=== PATIENT | female | born 1995 | race Caucasian/White ===

== ENCOUNTER 2019-10-19 09:40 | Emergency (ER) | payer BC ==
[2019-10-19] MEDS ORDERED: Dexamethasone TAB* 4 MG PO ONE (10:16)
[2019-10-19] MEDS ORDERED: Lidocaine 2% VISCOUS* 15 ML UDC PO ONE (10:16)
--- NOTE | 2019-10-19 10:17 | ED ---
Throat Pain/Nasal Congestion - HPI Summary HPI Summary: This patient is a 23 year old F presenting to ED with a chief complaint of swollen throat pain since 10/11/19. On 10/11/19 patient noticed that her throat was swelling. On 10/12/19 she had a fever that went away a day later. However, her throat pain kept and swelling getting worse and so she went to urgent care on 10/15/19. They diagnosed her with an infection, but she reports she has been feeling worse. She has been unable to sleep due to the pain and the swelling has not gone down. She reports she has been having moderate amounts of dry coughing, difficulty breathing, vomiting twice and intermittent fevers. She has taken Ibuprofen and Sudafed. The patient rates the pain 6/10 in severity. Symptoms aggravated by nothing. Symptoms alleviated by nothing. Medications reviewed. Allergies noted. - History of Current Complaint Chief Complaint: EDThroatPain Time Seen by Provider: 10/19/19 10:09 Hx Obtained From: Patient Onset/Duration: Gradual Onset, Lasting Days - Since 10/11/19, Still Present, Worse Since Severity: Moderate Cough: Nonproductive - Allergies/Home Medications Allergies/Adverse Reactions: Allergies Allergy/AdvReac Type Severity Reaction Status Date / Time No Known Allergies Allergy Verified 10/19/19 09:45 Home Medications: Home Medications Amoxicillin PO (*) [Amoxicillin 875 MG (*)] 875 mg PO BID 10/19/19 [History Confirmed 10/19/19] Ibuprofen TAB* [Motrin TAB* 400 MG] 400 mg PO Q6H PRN 10/19/19 [History Confirmed 10/19/19] PMH/Surg Hx/FS Hx/Imm Hx Endocrine/Hematology History: Denies: Hx Diabetes Cardiovascular History: Denies: Hx Hypercholesterolemia, Hx Hypertension Sensory History: Denies: Hx Legally Blind, Hx Deafness Opthamlomology History: Denies: Hx Legally Blind EENT History: Denies: Hx Deafness - Surgical History Surgery Procedure, Year, and Place: Denies Infectious Disease History: No Infectious Disease History: Denies: Traveled Outside the [place] in Last 30 Days - Family History Known Family History: Positive: Hypertension, Diabetes - Social History Alcohol Use: Occasionally Hx Substance Use: No Substance Use Type: Reports: None Hx Tobacco Use: No Smoking Status (MU): Never Smoked Tobacco Review of Systems Positive: Fever ENT: Other - Swollen throat and throat pain Respiratory: Other - Difficulty breathing Positive: Cough - Dry cough Positive: Vomiting - x2 All Other Systems Reviewed And Are Negative: Yes Physical Exam - Summary Physical Exam Summary: Constitutional: Well-developed, Well-nourished, Alert. (-) Distressed Skin: Warm, Dry HENT: bilateral tonsillar erythema, swelling, exudate, uvula midline, no pain with tracheal manipulation, full range of motion of the neck Eyes: Conjunctiva normal Neck: Musculoskeletal ROM normal neck. (-) JVD, (-) Stridor, (-) Tracheal deviation Cardio: Rhythm regular, rate normal, Heart sounds normal; Intact distal pulses; Radial pulses are 2+ and symmetric. (-) Murmur Pulmonary/Chest wall: Effort normal. (-) Respiratory distress, (-) Wheezes, (-) Rales Abd: Soft, (-) tenderness, (-) Distension, (-) Guarding, (-) Rebound Musculoskeletal: (-) Edema Lymph: (-) Cervical adenopathy Neuro: Alert, Oriented x3 Psych: Mood and affect Normal Triage Information Reviewed: Yes Vital Signs On Initial Exam: Initial Vitals Temp Pulse Resp BP Pulse Ox 99.3 F 103 20 145/97 97 10/19/19 09:42 10/19/19 09:42 10/19/19 09:42 10/19/19 09:42 10/19/19 09:42 Vital Signs Reviewed: Yes Procedures - Sedation Patient Received Moderate/Deep Sedation with Procedure: No Diagnostics - Vital Signs Vital Signs Temp Pulse Resp BP Pulse Ox 10/19/19 09:42 99.3 F 103 20 145/97 97 - Laboratory Lab Statement: Any lab studies that have been ordered have been reviewed, and results considered in the medical decision making process. Re-Evaluation - Re-Evaluation First Eval Re-Evaluation Time: 11:11 Comment: Discussed results with patient. Patient will be discharged home with dx of pharyngitis. Patient understands and agrees with this plan. EENT Course/Dx - Course Course Of Treatment: Patient is here with pharyngitis. Patient has no evidence of LVN or retropharyngeal abscess on exam. Patient's overall well appearing. Patient had negative rapid strep. Patient is given a dose of Decadron for her symptoms. Patient was discharged - Diagnoses Provider Diagnoses: Pharyngitis Discharge ED - Sign-Out/Discharge Documenting (check all that apply): Patient Departure - Discharge - Discharge Plan Condition: Stable Disposition: HOME Prescriptions: Dexamethasone TAB* [Decadron TAB*] 12 mg PO DAILY #3 tab Patient Education Materials: Pharyngitis (ED) Referrals: [facility] [Outside] - 3 Days Additional Instructions: Follow up with your primary care physician in 1-3 days. Take your second dose of steroids tomorrow. Return to the ER for worsening or changing symptoms. - Billing Disposition and Condition Condition: STABLE Disposition: Home - Attestation Statements Document Initiated by Gabriel: Yes Documenting Scribe: Tanner Oquendo Provider For Whom Gabriel is Documenting (Include Credential): Fawad Jenkins MD Scribe Attestation: Tanner Olvera, scribed for Fawad Jenkins MD on 10/19/19 at 1541. Scribe Documentation Reviewed: Yes Provider Attestation: The documentation as recorded by the Tanner haq accurately reflects the service I personally performed and the decisions made by Fawad kim MD Status of Scribe Document: Viewed
[2019-10-19 10:54] LABS: Rapid Strep Molecular Negative (Negative)
[2019-10-19 11:24] VITALS: BP 123/77
== END 2019-10-19 11:24 | disposition home or self-care (01) ==
LOC: ED 09:40
DX: J02.9 Acute pharyngitis, unspecified (principal); R05 Cough; R11.10 Vomiting, unspecified; R50.9 Fever, unspecified
CPT/HCPCS: 87651; 99282; J8540